=== PATIENT | female | born 1940 | race Hispanic/Latino ===

== ENCOUNTER 2020-02-10 08:50 | Emergency (ER) | payer OTHER, MEDICARE ==
[2020-02-10] MEDS ORDERED: ONDANSETRON 4MG INJ ONE (09:29)
[2020-02-10 09:30] LABS: BASOPHILS % (AUTO) 0.4 % (0.0-5.0); EOSINOPHILS % (AUTO) 0.5 % (0.0-8.0); HEMATOCRIT 39.4 % (36-48); LYMPHOCYTES % (AUTO) 18.3 % (21.0-51.0); MEAN CORPUSCULAR HGB CONC 32.5 g/dL (32.0-36.0); MEAN CORPUSCULAR VOLUME 86.2 fL (79-99); MONOCYTES % (AUTO) 3.2 % (3.0-13.0); NEUTROPHILS % (AUTO) 77.4 % (40.0-77.0); PLATELET COUNT (AUTO) 257 K/uL (130-400); RED BLOOD CELL COUNT(AUTO) 4.57 MIL/uL (4.00-5.50); RED CELL DISTRIBUTION WIDTH 14.2 % (11.0-15.5); WHITE BLOOD COUNT (AUTO) 8.2 K/uL (4.8-10.8)
[2020-02-10 09:44] LABS: INR 0.99 (0.85-1.15); PARTIAL THROMBOPLASTIN TIME 26.8 SEC (26.3-35.5); PROTHROMBIN TIME 10.7 SEC (9.6-11.6)
[2020-02-10 09:47] LABS: ALBUMIN 4.1 g/dL (3.5-5.0); BILIRUBIN,TOTAL 0.6 mg/dL (0.2-1.0); CREATININE 0.7 mg/dL (0.5-1.5); POTASSIUM 3.9 mmol/L (3.5-5.1); TOTAL PROTEIN, SERUM 7.8 g/dL (6.0-8.3)
[2020-02-10 09:53] LABS: B-TYPE NATRIURETIC PEPTIDE 37 pg/mL (0-100)
[2020-02-10] MEDS ORDERED: FAMOTIDINE 20MG VIAL IV ONE (10:03)
[2020-02-10] MEDS ORDERED: MECLIZINE HCL 25 MG TABLET ONE (10:03)
[2020-02-10 11:37] LABS: APPEARANCE,URINE SL CLOUDY (CLEAR); BILIRUBIN,URINE NEGATIVE (NEGATIVE); COLOR,URINE YELLOW (YELLOW); GLUCOSE, URINE (UA) NEGATIVE (NEGATIVE); KETONES,URINE NEGATIVE (NEGATIVE); LEUKOCYTE ESTERASE ,URINE SMALL (NEGATIVE); NITRATE,URINE POSITIVE (NEGATIVE); OCCULT BLOOD,URINE NEGATIVE (NEGATIVE); PH,URINE 7.5 (5.0-8.0); PROTEIN,URINE NEGATIVE (NEGATIVE); UROBILINOGEN,URINE 0.2 mg/dL (0.2-1.0)
[2020-02-10 11:56] LABS: BACTERIA,URINE Many /HPF (None Seen); RBC,URINE 0-1 /HPF (0-1); SQUAMOUS EPITHELIAL CELL,UR Rare /HPF (0-2)
[2020-02-10] MEDS ORDERED: MAG/ALUM/SIMETH 30 ML UDCUP ONE (11:58)
[2020-02-10] MEDS ORDERED: LIDOCAINE HCL 2% VISCOUS 15 ML UDCUP ONE (11:58)
== END 2020-02-10 18:34 | disposition home or self-care (01) ==
LOC: EDH 08:50
DX: N30.00 Acute cystitis without hematuria (principal); I49.9 Cardiac arrhythmia, unspecified; R11.10 Vomiting, unspecified; Z20.828 Contact with and (suspected) exposure to other viral communicable diseases; E78.00 Pure hypercholesterolemia, unspecified; Z90.49 Acquired absence of other specified parts of digestive tract
CPT/HCPCS: 36415; 71045; 80053; 81001; 82550; 83605; 83690; 83880; 84145; 84484 ×2; 85025; 85610; 85730; 87077; 87088; 87186; 87426; 87804 ×2; 93005 ×2; 96361; 96374; 96375; 99285; J2405; J3490

== ENCOUNTER 2024-03-01 14:15 | Emergency (ER) | payer OTHER ==
[~2024-03-01] VITALS: Ht 154.9 cm; Wt 68.0 kg
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
[2024-03-01 15:28] VITALS: BP 155/74; PULSE 81; RESP 16; TEMP 97.6; O2SAT 98
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
[2024-03-01] MEDS: acetaMINOPHEN WITH coDEINE 1 TAB TAB PO ONE (15:42)
[2024-03-01] MEDS ORDERED: ACET-2079 PO (15:59)
== END 2024-03-01 16:04 | disposition home or self-care (01) ==
LOC: EDH 14:15
DX: S46.912A Strain of unspecified muscle, fascia and tendon at shoulder and upper arm level, left arm, initial encounter (principal); S46.911A Strain of unspecified muscle, fascia and tendon at shoulder and upper arm level, right arm, initial encounter; Z90.710 Acquired absence of both cervix and uterus; X58.XXXA Exposure to other specified factors, initial encounter; Y93.89 Activity, other specified; Y92.89 Other specified places as the place of occurrence of the external cause; Y99.8 Other external cause status
CPT/HCPCS: 73030; 99283

== ENCOUNTER 2025-01-11 11:01 | Emergency (ER) | payer OTHER, MEDICARE ==
[~2025-01-11] VITALS: Ht 157.5 cm; Wt 52.2 kg
[~2025-01-11 11:01] MED LIST: ACET-2079 PO
[2025-01-11] MEDS ORDERED: TETRACAINE HCL 0.5% 4 ML OPHTH SOLN OP STA (11:05)
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
[2025-01-11 11:23] LABS: IMMATURE GRANULOCYTE ABSOLUTE 0.03 K/uL (0-1); NUCLEATED RED BLOOD CELLS 0.0 % (0.0-0.19); PLATELET COUNT (AUTO) 269 K/uL (130-400); RED BLOOD CELL COUNT(AUTO) 4.42 MIL/uL (4.00-5.50); RED CELL DISTRIBUTION WIDTH 14.6 % (11.0-15.5); WHITE BLOOD COUNT (AUTO) 6.7 K/uL (4.8-10.8)
[2025-01-11] MEDS ORDERED: FLUORESCEIN SODIUM 1 STRIP STRIP OP SCH (11:30)
[2025-01-11 11:31] LABS: CREATININE 0.8 mg/dL (0.5-1.0); GLOMERULAR FILTR. RATE CALC 72.0 mL/min (>90); GLUCOSE,RANDOM 107.0 mg/dL (70-105); SODIUM SERUM 135.0 mmol/L (136-145); UREA NITROGEN, BLOOD 22.0 mg/dL (7-18)
--- NOTE | 2025-01-11 12:15 | NUR ---
PT JUST NOW PLACED IN ED BED 10
[2025-01-11 13:22] LABS: APPEARANCE,URINE CLEAR (CLEAR); GLUCOSE, URINE (UA) NEGATIVE (NEGATIVE); LEUKOCYTE ESTERASE ,URINE NEGATIVE Leu/uL (NEGATIVE); NITRATE,URINE NEGATIVE (NEGATIVE); OCCULT BLOOD,URINE NEGATIVE (NEGATIVE)
[2025-01-11 13:38] LABS: ADD UA MICROSCOPIC NO
--- NOTE | 2025-01-11 14:35 | EKG ---
[facility] Test Date: 2025-01-11 Test Time: 12:08:46 Pat Name: AYDE MO Department: ED Room: Gender: F Supply Planner: [id number] : [id number] Requested By: SLY BRADEN Order Number: [id number] Reading MD: Delmy Garcia Measurements Intervals [place] Rate: 61 P: 32 MN: 159 QRS: -38 QRSD: 79 T: -10 QT: 423 QTc: 427 Interpretive Statements Sinus rhythm Anterior Q waves, possibly due to LVH Compared to ECG 02/10/2020 12:45:59 Q waves now present Left-axis deviation no longer present Myocardial infarct finding no longer present Electronically Signed On 01-11-2025 19:40:45 BREWING DIRECTOR by Delmy Garcia Please click the below link to view image of tracing.
[2025-01-11 14:57] VITALS: BP 166/70; PULSE 72; RESP 18; TEMP 97.8; O2SAT 98
== END 2025-01-11 15:00 | disposition home or self-care (01) ==
LOC: EDH 11:01
DX: F41.1 Generalized anxiety disorder (principal); E86.0 Dehydration; Z90.710 Acquired absence of both cervix and uterus
CPT/HCPCS: 36415; 80048; 81003; 84484; 85025; 93005; 99284